=== PATIENT | female | born 1960 | race Caucasian/White ===

== ENCOUNTER → 2016-10-02 | Outpatient (CLI) | payer OTHER ==
[~2016-10-02] MED LIST: ASPI325T4 PO; BUPR75TA5 PO; CITA40TA5 PO; DIGO250T PO; MULT-35 PO; OMEP20TA PO
--- NOTE | 2016-10-02 19:42 | Diagnostic Imaging Report ---
INDICATION: Followup densities in right breast on previous diagnostic mammography. EXAMINATION: Bilateral digital screening mammogram with CAD, 10/02/2016 The current study was also evaluated with a Computer Aided Detection (CAD) system. COMPARISON: 04/01/2016, 08/26/2015, 08/22/15 and 12/21/13. FINDINGS: The previously described and questioned densities in the right breast are no longer seen and are felt to have been caused by overlapping fibroglandular tissues. No new abnormalities within the right breast are seen with no new suspicious microcalcifications noted. The left breast is also stable. A questionable density was seen in the left breast on the true lateral view only. Spot compression imaging and MLO view no longer demonstrate this finding and it is felt to be caused by overlapping fibroglandular tissues. IMPRESSION: Stable appearance of the breast. No mammographic evidence for malignancy. Patient may return to yearly screening. ACR BI-RADS Category 2: Benign findings. Result letter will be mailed to the patient. Note: At least 10% of breast cancer is not imaged by mammography. Dictated by: Dictated on workstation # [id number]
== END ==
LOC: RAD 09:00
PROVIDERS: ATTEND Family Medicine
DX: N64.89 Other specified disorders of breast (principal)